=== PATIENT | male | born 1995 | race Caucasian/White ===

== ENCOUNTER 2018-07-25 21:14 | Emergency (ER) | payer OTHER ==
[~2018-07-25] VITALS: Ht 180.3 cm; Wt 95.3 kg
[~2018-07-25 21:14] MED LIST: HYDROCODONE BIT1 T11 PO; MOTRIN800 MG PO
[2018-07-25 21:16] VITALS: BP 133/90
[2018-07-25] MEDS ORDERED: IBU800 MG PO (21:17)
[2018-07-25] MEDS ORDERED: CLINDAMYCIN HC300 MG PO (21:17)
== END 2018-07-25 21:50 | disposition home or self-care (01) ==
LOC: ED 21:14
DX: K02.9 Dental caries, unspecified (principal)

== ENCOUNTER 2018-10-03 12:41 | Emergency (ER) | payer OTHER ==
[~2018-10-03] VITALS: Ht 180.3 cm; Wt 90.7 kg
[~2018-10-03 12:41] MED LIST changes: +CLINDAMYCIN HC300 MG PO; +IBU800 MG PO
[2018-10-03 12:42] VITALS: BP 164/82
[2018-10-03] MEDS ORDERED: AMOXICILLIN500 M2 PO (12:55)
[2018-10-03] MEDS ORDERED: NAPROSYN500 MG PO (12:55)
== END 2018-10-03 12:45 | disposition home or self-care (01) ==
LOC: ED 12:41
DX: K04.7 Periapical abscess without sinus (principal)

== ENCOUNTER 2018-11-20 12:09 | Emergency (ER) | payer OTHER ==
[~2018-11-20] VITALS: Ht 180.3 cm; Wt 90.7 kg
[~2018-11-20 12:09] MED LIST changes: +AMOXICILLIN500 M2 PO; +NAPROSYN500 MG PO
[2018-11-20 12:11] VITALS: BP 115/85
[2018-11-20] MEDS ORDERED: ROBITUSSIN DM 101 OZ PO (12:54)
[2018-11-20] MEDS ORDERED: IBU800 MG PO (12:54)
[2018-11-21] MEDS ORDERED: PROAIR HFA8.5 GM INH (20:21)
== END 2018-11-20 13:18 | disposition home or self-care (01) ==
LOC: ED 12:09
DX: J06.9 Acute upper respiratory infection, unspecified (principal); Z79.2 Long term (current) use of antibiotics; Z79.899 Other long term (current) drug therapy

== ENCOUNTER 2018-11-21 15:54 | Emergency (ER) | payer OTHER ==
[~2018-11-21] VITALS: Ht 177.8 cm; Wt 90.7 kg
--- NOTE | ~2018-11-21 | EKG ---
[place], [place] ELECTROCARDIOGRAM REPORT NAME: KD DAVALOS UNIT #: [id number] ROOM: DOCTOR: EPIPHANY DRAFT REPORT BIRTHDATE: [birth year] [facility] Test Date: 2018-11-21 Test Time: 16:24:40 Pat Name: KD DAVALOS Department: Room: Gender: M Concreter: : 1995 Requested By: SPIKE CAMPOVERDE PA-C Order Number: [id number] Reading MD: Shantel Menendez MD Measurements Intervals [place] Rate: 74 P: 34 MT: 123 QRS: 60 QRSD: 98 T: 29 QT: 378 QTc: 420 Interpretive Statements Sinus rhythm Normal ECG Electronically Signed On 11-26-2018 17:50:37 PDT by Shantel Menendez MD CM:EKGRPT:ELECTROCARDIOGRAM REPORT 1624 1750 SPIKE CAMPOVERDE PA-C EPIPHANY DRAFT REPORT SPIKE CAMPOVERDE PA-C
--- NOTE | ~2018-11-21 | EKG ---
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
[~2018-11-21 15:54] MED LIST changes: +ROBITUSSIN DM 101 OZ PO
[2018-11-21 16:14] VITALS: BP 157/88
[2018-11-21 16:30] LABS: BASO % 0.3 % (0.0-1.0); EOS # 0.1 10*3/uL (0.0-0.4); EOS % 0.9 % (1.0-4.0); HEMATOCRIT 45.8 % (42.0-52.0); HEMOGLOBIN 15.9 g/dl (14.0-18.0); MEAN CELL VOLUME 83.9 fl (80.0-94.0); MEAN CORPUSCULAR HGB 29.1 pg (27.0-31.0); MEAN CORPUSCULAR HGB CONC 34.7 g/dl (33.0-37.0); MEAN PLATELET VOLUME 10.8 fl (9.6-12.3); MONO # 0.7 10*3/uL (0.1-1.0); MONO % 7.3 % (3.0-9.0); NEUT # 6.8 10*3/uL (2.3-7.9); NEUT % 70.2 % (47.0-73.0); PLATELET COUNT AUTOMATED 279 10*3/uL (130-400); RED BLOOD COUNT 5.46 10*6/uL (4.50-5.90); RED CELL DISTRI WIDTH 11.9 % (0-14.5); WHITE BLOOD COUNT 9.7 10*3/uL (4.8-10.8)
[2018-11-21 16:41] LABS: ACT PARTIAL THROMBO TIME 26.5 SECONDS (20.0-32.1)
[2018-11-21 16:47] LABS: ALBUMIN 4.9 gm/dl (3.1-4.5); ALKALINE PHOSPHATASE 76 U/L (45-117); BUN 10 mg/dl (7-24); CHLORIDE 106 mmol/L (98-107); CREATININE 1.12 mg/dL (0.70-1.30); POTASSIUM 3.6 mmol/L (3.5-5.1); SGOT/AST 21 IU/L (3-35); SGPT/ALT 30 U/L (12-78); SODIUM 139 mmol/L (136-145); TOTAL PROTEIN 8.3 gm/dL (6.4-8.2)
[2018-11-21 16:54] LABS: TROPONIN I < 0.015 ng/ml (<0.045)
[2018-11-21] MEDS ORDERED: PROAIR HFA8.5 GM INH (20:21)
== END 2018-11-21 20:29 | disposition home or self-care (01) ==
LOC: ED 15:54
PROVIDERS: Physician Assistant
DX: R07.89 Other chest pain (principal); B34.9 Viral infection, unspecified

== ENCOUNTER 2019-11-06 05:26 | Inpatient (IN) | payer MEDICAID ==
[~2019-11-06] VITALS: Ht 182.8 cm; Wt 96.8 kg
[~2019-11-06 05:26] MED LIST changes: +PROAIR HFA8.5 GM INH
[2019-11-06 05:33] VITALS: BP 133/80
[2019-11-06 06:24] LABS: BASO % 0.2 % (0.0-1.0); EOS % 0.2 % (1.0-4.0); HEMATOCRIT 40.9 % (42.0-52.0); LYMPH # 1.5 10*3/uL (1.3-4.4); LYMPH % 8.1 % (27.0-41.0); MEAN CELL VOLUME 82.5 fl (80.0-94.0); MEAN CORPUSCULAR HGB 27.8 pg (27.0-31.0); MEAN CORPUSCULAR HGB CONC 33.7 g/dl (33.0-37.0); MEAN PLATELET VOLUME 10.1 fl (9.6-12.3); MONO # 1.2 10*3/uL (0.1-1.0); MONO % 6.1 % (3.0-9.0); NEUT # 16.2 10*3/uL (2.3-7.9); NEUT % 84.8 % (47.0-73.0); PLATELET COUNT AUTOMATED 210 10*3/uL (130-400); RED BLOOD COUNT 4.96 10*6/uL (4.50-5.90); RED CELL DISTRI WIDTH 11.5 % (0-14.5); WHITE BLOOD COUNT 19.1 10*3/uL (4.8-10.8)
--- NOTE | 2019-11-06 06:37 | NUR ---
PATIENT DRINKING CONTRAST AT THIS TIME, TOLERATING WELL
[2019-11-06 06:40] LABS: ALBUMIN 3.6 gm/dl (3.1-4.5); ALKALINE PHOSPHATASE 80 U/L (45-117); BUN 13 mg/dl (7-24); CHLORIDE 102 mmol/L (98-107); CREATININE 1.11 mg/dL (0.70-1.30); LIPASE 90 U/L (73-393); POTASSIUM 3.8 mmol/L (3.5-5.1); SGOT/AST 18 IU/L (3-35); SGPT/ALT 33 U/L (12-78); SODIUM 136 mmol/L (136-145)
--- NOTE | 2019-11-06 07:05 | NUR ---
REPORT FROM SKYLER ACEVEDO AT THIS TIME.
--- NOTE | 2019-11-06 07:51 | NUR ---
PATIENT WENT TO CT SCAN AND HAD LARGE EMESIS WHILE AT SCAN PER SENIOR ACCOUNT DIRECTOR.
[2019-11-06 08:26] VITALS: BP 148/83
--- NOTE | 2019-11-06 09:00 | NUR ---
PATIENT DENIES WOUNDS AT THIS TIME. A&OX4.
[2019-11-06 09:53] LABS: BILIRUBIN NEGATIVE; BLOOD TRACE-LYSED (NEGATIVE); CLARITY CLEAR (CLEAR); COLOR YELLOW (YELLOW); GLUCOSE NEGATIVE; KETONE 2+; PH 5.5 (4.5-8.0); SPECIFIC GRAVITY > 1.030 (1.001-1.030)
[2019-11-06 09:54] LABS: EPITHELIAL CELLS 0-2; LEUKO ESTERASE NEGATIVE (NEGATIVE); NITRITE NEGATIVE (NEGATIVE); WBC 0-2 wbc/hpf (0-5)
[2019-11-06 10:00] VITALS: BP 140/84
--- NOTE | 2019-11-06 10:00 | NUR ---
Time: 999 A 23 year old MALE admitted to 5E under services of GEORGE LAM DO. Pt. arrived via stretcher from ER. Chief complaint: ABDOMINAL PAIN WITH NAUSEA/VOMITING/DIARRHEA, WORSENING OVER PAST TWO DAYS. NAT URENA
--- NOTE | 2019-11-06 10:02 | NUR ---
PATIENT REPORT GIVEN AT BEDSIDE TO NAT ACEVEDO. PATIENT TRANSPORTED TO 5E WITH NO CHANGES IN STATUS.
--- NOTE | 2019-11-06 10:30 | NUR ---
LEFT MESSAGE ON DR. NORTON' CELLPHONE RE: CONSULT.
[2019-11-06 12:30] VITALS: BP 129/81
[2019-11-06 16:00] VITALS: BP 126/73
[2019-11-06 20:00] VITALS: BP 127/66
--- NOTE | 2019-11-06 21:00 | NUR ---
IV started right antecubital with #22 protective cath after 1 attempts. Site prepped with Chloroprep. Sterile dressing applied. Patient tolerated procedure well. IV infusing at 50 CC/HR. SUYAPA NGUYEN
--- NOTE | 2019-11-06 23:10 | NUR ---
24 HR chart check completed.
[2019-11-07] VITALS: BP 127/74
[2019-11-07 07:04] LABS: BASO % 0.3 % (0.0-1.0); EOS # 0.1 10*3/uL (0.0-0.4); EOS % 0.8 % (1.0-4.0); LYMPH # 1.4 10*3/uL (1.3-4.4); MEAN CELL VOLUME 84.1 fl (80.0-94.0); MEAN CORPUSCULAR HGB 28.1 pg (27.0-31.0); MEAN CORPUSCULAR HGB CONC 33.4 g/dl (33.0-37.0); MEAN PLATELET VOLUME 10.5 fl (9.6-12.3); MONO # 0.7 10*3/uL (0.1-1.0); MONO % 7.1 % (3.0-9.0); NEUT % 77.3 % (47.0-73.0); PLATELET COUNT AUTOMATED 198 10*3/uL (130-400); RED BLOOD COUNT 4.52 10*6/uL (4.50-5.90); RED CELL DISTRI WIDTH 11.7 % (0-14.5); WHITE BLOOD COUNT 10.3 10*3/uL (4.8-10.8)
[2019-11-07 07:30] LABS: ALBUMIN 3.3 gm/dl (3.1-4.5); ALKALINE PHOSPHATASE 68 U/L (45-117); BUN 9 mg/dl (7-24); CHLORIDE 105 mmol/L (98-107); CHOLESTEROL 150 mg/dL (<200); CREATININE 1.02 mg/dL (0.70-1.30); FREE T4 1.06 ng/dl (0.76-1.46); HDL CHOLESTEROL 34 mg/dl (40-60); LDL CHOLESTEROL 101 mg/dL (9-159); POTASSIUM 3.5 mmol/L (3.5-5.1); SGOT/AST 14 IU/L (3-35); SGPT/ALT 27 U/L (12-78); SODIUM 139 mmol/L (136-145); TOTAL PROTEIN 7.6 gm/dL (6.4-8.2); TRIGLYCERIDES 75 mg/dl (<150); VLDL CHOLESTEROL 15 mg/dL (6-40)
[2019-11-07 07:51] LABS: VITAMIN D, 25-HYDROXY 20.5 ng/mL (30-100)
[2019-11-07 08:00] VITALS: BP 122/68
--- NOTE | 2019-11-07 09:00 | NUR ---
Regional Sales Consultant in to talk to patient. Patient states lives at home with family. There are no steps in the home. Physician: non Pharmacy: [facility] Home health services: none Patient's level of ADLs: INDEPENDENT Patient has working utilities: all working DME: none Follow-up physician's appointment after d/c: will be made by hospistalist nurse director upon discharge Does patient want to access PORTAL?: no Discharge plan discussed with patient, he states he lives at home with family, he is independent in adls and ambulation, he states he will return home when discharged, discussed with him self pay status, he stated his medicaid lapsed and he had filed for re instatement, he denies any home needs, case management will follow. CYNDI EPSTEIN
[2019-11-07 12:00] VITALS: BP 124/70
--- NOTE | 2019-11-07 13:02 | NUR ---
PT HAS EATEN 100% OF FULL LIQUID MEAL. PT DENIES ABDOMINAL DISCOMFORT AT THIS TIME. VOICES NO OTHER NEEDS AT THIS TIME. CALL LIGHT IN REACH.
[2019-11-07 16:00] VITALS: BP 123/67
--- NOTE | 2019-11-07 17:05 | NUR ---
Patient resting quietly with no c/o discomfort. Respirations easy and regular. Vital signs stable. No overt distress. JUANIS JAY
[2019-11-07 20:00] VITALS: BP 121/72
--- NOTE | 2019-11-07 20:14 | NUR ---
24 HR chart check completed.
[2019-11-08] VITALS: BP 125/63
[2019-11-08 08:00] VITALS: BP 121/72
[2019-11-08] MEDS ORDERED: CIPRO500 MG PO (09:22)
[2019-11-08] MEDS ORDERED: FLAGYL500 MG PO (09:22)
[2019-11-08] MEDS ORDERED: Motrin,Rufen800 MG PO (09:22)
--- NOTE | 2019-11-08 11:08 | NUR ---
Discharge instructions reviewed with patient/family. Patient receptive and verbalizes understanding. Follow-up care arranged. Written instructions given to patient/family. JUANIS JAY
== END 2019-11-08 11:08 | disposition home or self-care (01) | DRG 872 ==
LOC: ED 05:26 → EDHOLD 08:27 → 5E 08:27
PROVIDERS: Emergency Medicine; Registered Nurse; ADMIT Student in an Organized Health Care Education/Training Program; ATTEND Student in an Organized Health Care Education/Training Program
DX: A41.9 Sepsis, unspecified organism (principal); K57.92 Diverticulitis of intestine, part unspecified, without perforation or abscess without bleeding; E44.0 Moderate protein-calorie malnutrition; R73.9 Hyperglycemia, unspecified; E80.6 Other disorders of bilirubin metabolism; R80.9 Proteinuria, unspecified; E83.41 Hypermagnesemia; D64.9 Anemia, unspecified; Z82.49 Family history of ischemic heart disease and other diseases of the circulatory system

== ENCOUNTER 2023-03-22 11:18 | Emergency (ER) | payer SELFPAY ==
[~2023-03-22] VITALS: Ht 182.8 cm; Wt 130.6 kg
[~2023-03-22 11:18] MED LIST changes: +CIPRO500 MG PO; +FLAGYL500 MG PO; +Motrin,Rufen800 MG PO
[2023-03-22 11:42] VITALS: BP 135/118
[2023-03-22] MEDS ORDERED: BROMFED DM COU118 M2 PO (13:26)
== END 2023-03-22 13:42 | disposition home or self-care (01) ==
LOC: ED 11:18
DX: J10.1 Influenza due to other identified influenza virus with other respiratory manifestations (principal); Z20.822 Contact with and (suspected) exposure to COVID-19